=== PATIENT | male | born 1960 | race Two or more races ===

== ENCOUNTER 2021-04-17 23:50 | Emergency (ER) | payer OTHER ==
[~2021-04-17] VITALS: Ht 175.3 cm; Wt 92.1 kg
[2021-04-18] MEDS ORDERED: CARDURA1 MG (00:41)
[2021-04-18] MEDS ORDERED: FLONASE (00:42)
[2021-04-18] MEDS ORDERED: TAMSULOSIN (00:42)
[2021-04-18] MEDS ORDERED: DEPAKOTE ER250 MG (00:43)
[2021-04-18] MEDS ORDERED: MUPIROCIN22 GM TOP ×2 (02:29→02:32)
[2021-04-18] MEDS ORDERED: CLEOCIN HCL300 MG PO ×2 (02:29→02:32)
[2021-04-18] MEDS ORDERED: KETO10TA2 PO ×2 (02:29→02:32)
== END 2021-04-18 02:47 | disposition home or self-care (01) ==
LOC: ER 23:50
DX: L03.032 Cellulitis of left toe (principal)